=== PATIENT | male | born 1960 | race Caucasian/White ===

== ENCOUNTER 2025-06-04 13:54 | Outpatient (AMB) | payer OTHER, SELFPAY ==
--- OUTSIDE RECORDS SUMMARY | 2025-03-17 04:30 | XMS_ITS ---
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 Medications Medication SIG (Take, Route, Frequency, Duration) Notes Start Date End Date Status Repatha 140 MG/ML Solution Prefilled Syringe 1 mL Subcutaneous Active Cialis 5 MG Tablet 1 tablet as needed O rally Once a day 03/17/2025 Active Omeprazole 20 MG Capsule Delayed Release 1 capsule 1/2 to 1 hour before morning meal Orally Once a day 03/17/2025 Active Problems Problem Type SNOMED Code ICD Code Onset Dates Problem Status W/U Status Risk Notes Problem Pure hypercholesterolemi a (457972445) Pure hypercholesterol emia, unspecified (E78.00) Active confirmed no myalgia on rapatha, Problem Atherosclerotic heart disease of [place] coronary artery without angina pectoris (195199842340910) Atherosclerotic heart disease of [place] coronary artery without angina pectoris (I25.10) Active confirmed asymptomatic after cath Vital Signs Blood pressure systolic 122 mm Hg 03/17/20 25 Blood pressure diastolic 70 mm Hg 025 Heart Rate 56 /min 03/17/2025 Height 71 in 03/17/2025 Weight 180 lbs 03/17/2025 BMI 25.1 kg/m2 03/17/2025 Encounters Encounter Location Date Provider Diagnosis [facility] [address] [place], [place] [id number] 03/17/2025 Wolfgang Hollingsworth Bunionette of left f oot M21.622 ; Pure hypercholesterolemia, unspecified E78.00 and Atherosclerotic heart disease of [place] coronary artery without angina pectoris I25.10 Assessments Encounter Date Diagnosis (ICD Code) Assessment Notes Treatment Notes Treatment Clinical Notes Section Notes 03/17/2025 Bunionette of left foot (ICD-10 - M21.622) painful bunionette 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 Pt is well aware, being an ED physician, signs , symptoms, and treatment options. 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 Pt is well aware, being an ED physician, signs , symptoms, and treatment options. Next Appt Details Follow Up: prn, Reason: History and Physical Notes * HPI (History of Present Illness) Category Sub-Category Detail Notes Category Not es New symptom(s) 1) went on ski trip, avid skier, and injured lateral left foot. has bunion, and growing and worsening. no acute injury and has been painful since september, (6 months). Has been climbing mountains, otherwise feels well, active. 2) ASCVD, s/p acute LAD IN, initially EF 20-30%, and current EKG shows old IN qith Q waves. No chest pain, palp, dizziness currently 3) High choelsterol, had myualgia on statin after trying a few different ones. now on Rapatha, through cardiology. ROS, denies f/c/n/v/c/d/sizziness or syncope Examination Category Sub-Category Detail Notes Category Not es General Examination GENERAL APPEARANCE: in no ac jordan distress, well developed, well nourished EYES: pupils equal, round, reactive to light and accommodation HEART: no murmurs, regular rate and rhythm, S1, S2 normal LUNGS: clear to auscultatio n bilaterally EXTREMITIES: no clubbing, cyanosi s, or edema, bilateral bunions lateral, although left more sympotmatic Progress Notes * Jose Alfredo CORTEZDOB:[birth year] (64 yo M)Acc No.[id number]:03/17/2025 Progress Notes Patient: Jose Alfredo Yoder Provider: Albino Hollingsworth M.D. :1960 A ge:64 Y S ex:Male Date:03/17/2025 Address:[address] [place], [id number] Subjective: * Chief Complaints: * N P, needs a referral * HPI: N ew symptom(s): 1) went on ski trip, avid skier, and injured lateral left foot. has bunion, and growing and worsening. no acute injury and has been painful since september, (6 months). Has been climbing mountains, otherwise feels well, active. 2) ASCVD, s/p acute LAD IN, initially EF 20-30%, and current EKG shows old IN qith Q waves.? No chest pain, palp, dizziness currently 3) High choelsterol, had myualgia on statin after trying a few different ones. now on Rapatha, through cardiology. ROS, denies f/c/n/v/c/d/sizziness or syncope. * Medical History: Ascvd HTN High choelsterol Medical History Verified * Surgical History: cardiac cath Surgical History verified. * Family History: F ather: . M other: . F amily History Verified.. * Social History: Social History Verified. No Social History documented. * Medications: T akingCialis 5 MG Tablet 1 tablet as needed Orally Once a day Omeprazole 20 MG Capsule Delayed Release 1 capsule 1/2 to 1 hour before morning meal Orally Once a day Repatha 140 MG/ML Solution Prefilled Syringe 1 mL Subcutaneous Medication List reviewed and reconciled with the patientTaking Cialis 5 MG Tablet 1 tablet as needed Orally Once a day Taking Omeprazole 20 MG Capsule Delayed Release 1 capsule 1/2 to 1 hour before morning meal Orally Once a day Taking Repatha 140 MG/ML Solution Prefilled Syringe 1 mL Subcutaneous Medication List reviewed and reconciled with the patient * Allergies: N .K.D.A.yesAllergies Verified. Objective: * Vitals: H R:56/min, BP:122/70mm Hg, Ht: 71 in, Wt:180lbs, BMI:25.1Index, Ht-cm: 180.34 cm, Wt-k.65 kg. * Examination: G eneral Examination: GENERAL APPEARANCE: i n no acute distress, well developed, well nourished. EYES: p upils equal, round, reactive to light and accommodation. HEART: n o murmurs, regular rate and rhythm, S1, S2 normal.? LUNGS: c lear to auscultation bilaterally. EXTREMITIES: n o clubbing, cyanosis, or edema, bilateral bunions lateral, although left more sympotmatic. Assessment: * Assessment: 1. B unionette of left foot - M21.622 (Primary) N otes :painful bunionette 2 . P ure hypercholesterolemia, unspecified - E78.00 N otes :no myalgia on rapatha 3 . A therosclerotic heart disease of [place] coronary artery without angina pectoris - I25.10 N otes :asymptomatic after cath Plan: * Treatment: 2. P ure hypercholesterolemia, unspecified Notes: emma continue medication 3. A therosclerotic heart disease of [place] coronary artery without angina pectoris Notes: watch carefully for signs and symptoms of cardiac pathology. Pt is well aware, being an ED physician, signs , symptoms, and treatment options. * Follow Up: p rn * Electronic signature of Ronald Hollingsworth MD on 06/04/2025 at 01:58 PM EST Sign off status: Pending * Provider: Albino Hollingsworth M.D. Date: Generated for Raquel barraza/Faiza/Christopheritting on: 08/05/2024 01:58 PM EST
--- OUTSIDE RECORDS SUMMARY | 2025-05-03 03:45 | XMS_ITS ---
Author Organization [facility] dicine Visit Address [address], [address] [place] [address] Care Team Providers Care Laborer Shellfish Processing Name Role Phone Wolfgang Hollingsworth Unavailable [phone] Allergies No Known Allergies REASON FOR VISIT high cholesterol and review Medications Medication SIG (Take, Route, Frequency, Duration) Notes Start Date End Date Status Repatha 140 MG/ML Solution Prefilled Syringe 1 mL Subcutaneous Active Omeprazole 20 MG Capsule Delayed Release 1 capsule 1/2 to 1 hour before morning meal Orally Once a day 03/17/2025 Active Cialis 5 MG Tablet 1 tablet as needed O rally Once a day 03/17/2025 Active Encounters Encounter Location Date Provider Diagnosis [facility] [address] [place] [id number] 05/03/2025 Wolfgang Hollingsworth Pure hypercholesterolemia, unspecified E78.00 Assessments Encounter Date Diagnosis (ICD Code) Assessment Notes Treatment Notes Treatment Clinical Notes Section Notes 05/03/2025 Pure hypercholesterol emia, unspecified (ICD-10 - E78.00) no myalgia on rapatha, Pt will continue on rapatha, as had myalgia on crestor paperwork completed for [employer] deployment. Plan Of Treatment Treatment Notes Assessment Notes Pure hypercholesterolemia, unspecified Pt will continue on rapatha, as had myalgia on crestor paperwork completed for [place] deployment. Next Appt Details Follow Up: prn, Reason: History and Physical Notes * HPI (History of Present Illness) Category Sub-Category Detail Notes Category Not es New symptom(s) s/p FL and st ent in LAD. no medication management and previously on crestor, myalgia with extremes of physical activity, started on rapatha and myalgias improved. will soom be [place] in [employer], and needs to have no change in medication for 90 days prior. will cotninue on rapatha as this is available. Examination Category Sub-Category Detail Notes Category Not es General Examination GENERAL APPEARANCE: in no ac jordan distress, well developed, well nourished Progress Notes * Jose Alfredo CORTEZDOB:[birth year] (64 yo M)Acc No.[id number]:05/03/2025 Progress Notes Patient: Jose Alfredo Yoder Provider: Albino Hollingsworth M.D. :1960 A ge:64 Y S ex:Male Date:05/03/2025 Address:[address] [place], [place] [address] Subjective: * Chief Complaints: * H igh cholesterol and review * HPI: N ew symptom(s): s/p FL and stent in LAD. no medication management and previously on crestor, myalgia with extremes of physical activity, started on rapatha and myalgias improved. will soom be deployed in [employer] [place], and needs to have no change in medication for 90 days prior. will cotninue on rapatha as this is available. * Medical History: Ascvd HTN High choelsterol Medical History Verified * Surgical History: cardiac cath Surgical History verified. * Medications: T akingCialis 5 MG Tablet [...] * Allergies: N .K.D.A.yesAllergies Verified. Objective: * Examination: G eneral Examination: GENERAL APPEARANCE: i n no acute distress, well developed, well nourished. Assessment: * Assessment: 1. P ure hypercholesterolemia, unspecified - E78.00 (Primary) N otes :no myalgia on rapatha, Plan: * Treatment: * Follow Up: p rn * Electronic signature of Ronald Hollingsworth MD on 06/04/2025 at 01:57 PM EST Sign off status: Pending * Provider: Albino Hollingsworth M.D. Date: 07/03/2024 Generated for Raquel barraza/Faiza/Nila on: 08/05/2024 01:57 PM EST
--- OUTSIDE RECORDS SUMMARY | 2025-06-01 04:30 | XMS_ITS ---
Author Organization [facility] dicine Visit Address [address], [address] [place] [address] Care Team Providers Care Field Sampling Technician Name Role Phone Wolfgang Hollingsworth Unavailable [phone] Allergies No Known Allergies REASON FOR VISIT forms/neck pain with radiation and left hip pain Medications Medication SIG (Take, Route, Frequency, Duration) Notes Start Date End Date Status Omeprazole 20 MG Capsule Delayed Release 1 capsule 1/2 to 1 hour before morning meal Orally Once a day 03/17/2025 Active Repatha 140 MG/ML Solution Prefilled Syringe 1 mL Subcutaneous Active Cialis 5 MG Tablet 1 tablet as needed O rally Once a day 03/17/2025 Active Problems Problem Type SNOMED Code ICD Code Onset Dates Problem Status W/U Status Risk Notes Problem Spinal stenosis in cervical region (01965433) Spinal stenosis, cervical region (M48.02) Active confirmed MRI confirmed nerve impingment Encounters Encounter Location Date Provider Diagnosis [facility] [address] [place], [place] [phone] 06/01/2025 Wolfgang Hollingsworth Spinal stenosis, cervical region M48.02 and Pain in left hip M25.552 Assessments Encounter Date Diagnosis (ICD Code) Assessment Notes Treatment Notes Treatment Clinical Notes Section Notes 06/01/2025 Spinal stenosis, cervical region (ICD-10 - M48.02) MRI confirmed nerve impingment Completed disability form, unable to work until condition improves, either with concervative therapy or surgery. follow up with surgeon planned. 50 min spent discussing condition, option of concervative vs aggressive treatment. 06/01/2025 Pain in left hip (ICD-10 - M25.552) possibly soft tissue injury will get xray of hip and refer pr pt request. Plan Of Treatment Treatment Notes Assessment Notes Spinal stenosis, cervical region Completed disability form, unable to work until condition improves, either with concervative therapy or surgery. follow up with surgeon planned. 50 min spent discussing condition, option of concervative vs aggressive treatment. Pain in left hip will get xray of hip and refer pr pt request. Pending Test Test Name Order Date XR HIP LEFT 06/01/2025 History and Physical Notes * HPI (History of Present Illness) Category Sub-Category Detail Notes Category Not es New symptom(s) 2 weeks ago , noted pain in neck with radiation down left arm to hand. subjective weakness, mild discordination, was given steroids which helped a bit for a short time, but now worsening. now noticing fasciulations in left hand with pain trying to sleep. MRI shows cervical stenosis, contemplating surgery. 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 Also 2 weeks ago, noted pain and clicking with limits of left hip rotation. not improving. Examination Category Sub-Category Detail Notes Category Not es General Examination GENERAL APPEARANCE: in no ac [place] distress, well developed, well nourished NECK/THYROID: pain with radiation down left arm with rotation NEUROLOGIC: subjective weakness, left hand with some fasciculations, dtr equal upper extremities, left hip with tenderness and click with extremes of lateral rotation. Progress Notes * Jose Alfredo CORTEZDOB:[birth year] (64 yo M)Acc No.[id number]:06/01/2025 Progress Notes Patient: Jose Alfredo Yoder Provider: Albino Hollingsworth M.D. :1960 A ge:64 Y S ex:Male Date:06/01/2025 Address:[address] [place], [place] [id number] Subjective: * Chief Complaints: * F orms/neck pain with radiation and left hip pain * HPI: N ew symptom(s): 2 weeks ago , noted pain in neck with radiation down left arm to hand. subjective weakness, mild discordination, was given steroids which helped a bit for a short time, but now worsening. now noticing fasciulations in left hand with pain trying to sleep. MRI shows cervical stenosis, contemplating surgery. 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 Also 2 weeks ago, noted pain and clicking with limits of left hip rotation. not improving. * Medical History: Ascvd HTN High choelsterol [...] no acute distress, well developed, well nourished. NECK/THYROID: p ain with radiation down left arm with rotation. NEUROLOGIC: s ubjective weakness, left hand with some fasciculations, dtr equal upper extremities, left hip with tenderness and click with extremes of lateral rotation. Assessment: * Assessment: 1. S cherise stenosis, cervical region - M48.02 (Primary) N otes :MRI confirmed nerve impingment 2 . P ain in left hip - M25.552 N otes :possibly soft tissue injury Plan: * Treatment: 2. P ain in left hip I maging: XR HIP LEFT Notes: will get xray of hip and refer pr pt request. * Electronic signature of Ronald Hollingsworth MD on 06/04/2025 at 01:57 PM EST Sign off status: Pending * Provider: Albino Hollingsworth M.D. Date: 08/02/2024 Generated for Raquel barraza/Faiza/Christopheritting on: 08/05/2024 01:57 PM EST
--- OUTSIDE RECORDS SUMMARY | 2025-06-04 13:57 | XMS_ITS | Patient Health Record ---
Author Organization [facility] Address [address] [address] Care Team Providers Care Men'S Leather Dress Belt Maker Name Role Phone other, (w) Unavailable Unavailable Reason For Referral No Information Plan Of Treatment No Information Insurance Providers Payer Name Payer Address Payer Phone Subscriber Number Group Number Insured Name Patient Relationship to Insured Coverage Start Date Coverage End Date Self Pay [phone] [place] [address] Jose Alfredo Cortez Self - patient is the insured
--- OUTSIDE RECORDS SUMMARY | 2025-06-04 13:57 | XMS_ITS ---
[place] [address] Care Team Providers Care Developmental Behavioral Physician Name Role Phone Lang Fernandez MD Primary Care Provide r Hyperlipidemia Status:Ineligible (Enrolling) Start date:08/05/2024 Enrollment reason:Ineligible - Insurance Mandate Current support & services provided:Benefits Investigation Linked medications:evolocumab (Active) Linked problems:ASCVD (arteriosclerotic cardiovascular disease) (Active) Continued Care and Services Coordination
--- OUTSIDE RECORDS SUMMARY | 2025-06-04 13:57 | XMS_ITS | Clinical Summary ---
Author Organization [facility] Address [address] [place] [address] Care Team Providers Care Loss Prevention Research Engineer Name Role Phone Fernie Jewell MD Unavailable [phone] Wolfgang Hollingsworth Primary Care Provider [phone] Social History Tobacco Use Types Packs/Day Years Used Date Smoking Tobacco: Never Assessed Sex and Gender Information Value Date Recorded Sex Assigned at Male 05/21/2025 2:02 PM EST Legal Sex Male 2:01 PM EST Gender Identity Male 05/21/2025 2:02 PM EST Sexual Orientation Not on file Plan of Treatment Upcoming Encounters Date Type Department Care Team (Late st Contact Info) Description 06/09/2025 8:40 AM EST Office Visit [facility] [address] [place] [address], [address] [place] [address] Butser Amaya MD [address] [place] [id number] In Person with Physician Health Maintenance Due Date Last Done Comments Blood Pressure 1960 Lipid Panel 1960 PSA 1960 Prostate Cancer Screening 1960 SDM 1960 Depression Screening 1972 Hepatitis C Screening 1978 CT Colonography 2005 Colonoscopy 2005 Colorectal Cancer Screening 2005 FIT 2005 FOBT 2005 Multitarget Stool DNA (Cologuard) 2005 Sigmoidoscopy 2005 Pneumococcal Vaccine: 50+ Years (1 of 1 - PCV) 2010 Zoster Vaccine (1 of 2) 2010 COVID-19 Vaccine ( - 2024-2 6 season) 2025 Influenza Vaccine (#1) 2025 3, 02/24/2020 DTaP,Tdap,and Td Vaccines (2 - Td or Tdap) 10/04/2030 10/04/2020 Meningococcal B Vaccines Aged Out No longer eligible based on patient's age to complete this topic Meningococcal Vaccines Aged Out No lo nger eligible based on patient's age to complete this topic Procedures Procedure Name Priority Date/Time Associated Diagnosis Comments MRI CERVICAL SPINE OUTSIDE STUDY 05/20/2025 4:20 PM EST from Last 3 Months Results * MRI Cervical Spine Outside Study (05/20/2025 4:20 PM EST) Anatomical Region Laterality Modality Magnetic Resonan ce 05/21/2025 5:04 PM EST Narrative 05/21/2025 5:04 PM EST This is a non-reportable study used for image storage. It has been automatically finalized and does not contain a result. Procedure Note System, Provider Not In - 05/21/2025 This is a non-reportable study used for image storage. It has beenautomatically finalized and does not contain a result. us Provider Not In System IMG MRI ORDERABLES Final Result from Last 3 Months Insurance Care Teams Loss Prevention Research Engineer Relationship Specialty Start Date End Date Wolfgang Hollingsworth [address] [place] [id number] PCP - General 05/21/25 Fernie Jewell MD [address] [place] [id number] Consulting Provider Neurology 05/21/25
--- OUTSIDE RECORDS SUMMARY | 2025-06-04 13:58 | XMS_ITS | Patient Health Record ---
Author Organization [facility] Internal Az dicine Visit Address [address], [address] [place] [address] Care Team Providers Care Curing Pickling Packer Name Role Phone Wolfgang Hollingsworth Unavailable [phone] Allergies No Known Allergies Reason For Referral Reason left foot bunionette Diagnosis 1 Bunionette of left f oot (M21.622) Referral Organization [facility] Referring Provider First Name Wolfgang Referring Provider Last Name Edel Referring Provider Speciality Internal M edicine Referred Provider Joao May Referred Provider Specialty Podiatry Referral Priority Routine Medications Medication SIG (Take, Route, Frequency, Duration) [...] Problem Status W/U Status Risk Notes Problem Atherosclerotic heart disease of [place] coronary artery without angina pectoris ([id number]) Atherosclerotic heart disease of [place] coronary artery without angina pectoris (I25.10) Active confirmed asymptomatic after cath Problem Spinal stenosis in cervical region (19214399) Spinal stenosis, cervical region (M48.02) Active confirmed MRI confirmed nerve impingment Problem Cervicalgia (10083060) Cervicalgia (M54.2) Active confirmed Problem Pure hypercholesterolemi a (915467622) Pure hypercholesterol emia, unspecified (E78.00) Active confirmed no myalgia on rapatha, Vital Signs Heart Rate 56 /min 03/17/2025 Blood pressure diastolic 70 mm Hg 03/17/2025 Height 71 in 03/17/2025 Blood pressure systolic 122 mm Hg 03/17/2025 Weight 180 lbs 03/17/2025 BMI 25.1 kg/m2 03/17/2025 Encounters Encounter Location Date Provider Diagnosis [facility] [address] [place] [address] [id number] 03/17/2025 Wolfgang Hollingsworth Bunionette of left f oot M21.622 ; Pure hypercholesterolemia, unspecified E78.00 and Atherosclerotic heart disease of [place] coronary artery without angina pectoris I25.10 [facility] [address] [place] [address] [id number] 05/03/2025 Wolfgang Hollingsworth Pure hypercholesterolemia, unspecified E78.00 [facility] [address] [place] [address] [id number] 06/01/2025 Wolfgang Hollingsworth Spinal stenosis, cervical region M48.02 and Pain in left hip M25.552 [facility] [address] [place] [address] [id number] 04/27/2025 Wolfgang Hollingsworth [facility] [address] [place] [address] [id number] 05/20/2025 Wolfgang Hollingsworth Cervicalgia M54.2 Assessments Encounter Date Diagnosis (ICD Code) Assessment Notes Treatment Notes Treatment Clinical Notes Section Notes 03/17/2025 Pure hypercholesterolemi a, unspecified (ICD-10 - E78.00) no myalgia on rapatha emma continue medication 03/17/2025 Bunionette of left foot (ICD-10 - M21.622) painful bunionette 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 05/20/2025 Cervicalgia (ICD-10 - M54.2) 06/01/2025 Pain in left hip (ICD-10 - M25.552) possibly soft tissue injury will get xray of hip and refer pr pt request. 06/01/2025 Spinal stenosis, cervical region (ICD-10 - M48.02) MRI confirmed nerve impingment Completed disability form, unable to work until condition improves, either with concervative therapy or surgery. follow up with surgeon planned. 50 min spent discussing condition, option of concervative vs aggressive treatment. 03/17/2025 Atherosclerotic heart disease of [place] coronary artery without angina pectoris (ICD-10 - I25.10) asymptomatic after cath watch carefully for signs and symptoms of cardiac pathology. Pt is well aware, being an ED physician, signs , symptoms, and treatment options. Plan Of Treatment Pending Test Test Name Order Date MR SPINE CERVICAL WO CONTRAST 05/20/2025 XR HIP LEFT 06/01/2025 Insurance Providers Payer Name Payer Address Payer Phone Subscriber Number Group Number Insured Name Patient Relationship to Insured Coverage Start Date Coverage End Date Claims Division [address] [place], [place] [id number] Jose Alfredo Cortez Self - patient is the insured 5 Medical (General) History Medical History History ICD Code ascvd HTN high choelsterol Surgical History Surgery Date(Month/Year) cardiac cath
--- OUTSIDE RECORDS SUMMARY | 2025-06-04 13:58 | XMS_ITS | Clinical Summary ---
Author Organization Pending Sale To [facility] Address [facility] [place] [address] Care Team Providers Care Binder Cutter Name Role Phone Lang Fernandez MD Primary Care Provide r Allergies Active Allergy Reactions Criticality Noted Date Comments Venom-Honey Bee High 10/24/2020 Medications nitroGLYcerin (Nitrostat) 0.4 mg Tablet, Sublingual Place 0.4 mg under the tongue every 5 minutes as needed for Chest pain. Active aspirin EC 81 mg Tablet, Delayed Release (E.C.)Indications: ASCVD (arteriosclerotic cardiovascular disease) Take 1 tablet by mouth daily. 90 tablet 3 08/17/19 23 Active evolocumab (Repatha SureClick) 140 mg/mL Pen InjectorIndication s:ASCVD (arteriosclerotic cardiovascular disease),ST elevation myocardial infarction involving left anterior descending (LAD) coronary artery,Coronary artery disease, unspecified vessel or lesion type, unspecified whether angina present, unspecified whether [place] or transplanted heart Inject 1 mL subcutaneously every 14 days. 3 mL 5 09/22/19 25 Active tadalafiL (Cialis) 5 mg tabletIndications: Lower urinary tract symptoms (LUTS) TAKE ONE TABLET BY MOUTH EVERY DAY 90 tablet 05/20/20 25 Active omeprazole (PriLOSEC) [address] capsuleIndications :Gastroesophageal reflux disease, unspecified whether esophagitis present TAKE ONE CAPSULE BY MOUTH EVERY DAY 90 capsule 05/20/20 25 Active Active Problems Problem Noted Date Diagnosed Date Lower urinary tract symptoms (LUTS) 04/03/2023 Cardiomyopathy, ischemic 10/26/2020 Overview (01/25/2021): TTE 10/2020 (in setting of anterior STEMI): EF 35-40%, LAD territory akinesis. No thrombus. No valve dz TTE 01/2021: EF 59%, distal anterior/apical tardykinesis. No valve dz. Regional wall motion abnormalities much improved compared to prior Assessment & Plan (07/30/2024 10:54 AM EST): No failure by history nor exam. - Diuresis: none - Cardioprotection: none (normalization of global LV systolic function) - Devices: none indicated Assessment & Plan (06/25/2023 10:08 AM EST): No failure by history nor exam. - Diuresis: none - Cardioprotection: none (normalization of global LV systolic function) - Devices: none indicated Assessment & Plan (08/02/2022 1:17 PM EST): No failure by history nor exam. - Diuresis: none - Cardioprotection: none (normalization of global LV systolic function) - Devices: none indicated Assessment & Plan (08/07/2021 1:43 PM EST): No failure by history nor exam. We reviewed the utility of valsartan. Patient would greatly like to stop the medication. He had quick normalization of global function, although remains with apical hypokinesis. Reviewed that there is risk of adverse remodeling off of cardioprotection. Thus, I think a good compromise would be to gather an echocardiogram in ~4-6 months; if there is any decrease in EF, this would warrant reapplication of cardioprotection - Diuresis: none - Cardioprotection: none, as discussed - Devices: none indicated Assessment & Plan (01/25/2021 3:27 PM EDT): No failure by history nor exam. - Diuresis: none - Cardioprotection: coreg, valsartan 80 - Devices: none indicated Assessment & Plan (10/26/2020 9:46 AM EDT): No failure by history nor exam. - Diuresis: none - Cardioprotection: coreg 2.125 bid, entresto - Devices: none indicated - Dx: TTE in 01/2021 ASCVD (arteriosclerotic cardiovascular disease) 10/24/2020 Overview (10/26/2020): Index Event: Anterior STEMI 10/10/2020 - pLAD 100% --> 3.0 x 26 Diggs - oLAD 50 - RCA (dominant) and Cx with mild dz Assessment & Plan (07/30/2024 10:56 AM EST): No angina per history at excellent workload. He recently stopped his crestor due to myalgias. Will recheck lipid panel as last LDL on crestor was 51 in 12/2023. Given this, will try repatha for secondary prevention as he has been intolerant of multiple statins. - Anti-Thrombosis: asa 81 - Anti- Lipemic: none (see above) - Anti- Anginals: GTN PRN Assessment & Plan (06/25/2023 10:08 AM EST): No angina per history at excellent workload. - Anti-Thrombosis: asa 81 - Statin: lipitor 80 - Anti-anginals: GTN PRN - LDL, LPa Assessment & Plan (08/02/2022 1:17 PM EST): No angina per history at excellent workload. Myalgias are likely from aerobic activity. If they become independent of such, can either decrease lipitor to 40, or switch to crestor. - Anti-Thrombosis: asa 81 - Statin: lipitor 80 - Anti-anginals: GTN PRN Assessment & Plan (08/07/2021 1:41 PM EST): No angina per history at excellent workload - Anti-Thrombosis: asa 81, prasugrel 10. D/c the latter 10/2021 - Statin: lipitor 80 - Anti-anginals: GTN PRN Assessment & Plan (01/25/2021 3:27 PM EDT): No angina per history at excellent workload - Anti-Thrombosis: asa 81, prasugrel 10 - Statin: lipitor 80 - Anti-anginals: GTN PRN, coreg Assessment & Plan (10/26/2020 9:49 AM EDT): Patient's discharge regimen for s/p PCI is rather atypical. I do not see a role for Eliquis. I think DAPT would confer significantly more protection against in- stent thrombosis than his current regimen. However, we do not want to have only one agent be therapeutic during medication manipulation. He also expressed interest in switching from plavix to either ticagrelor or prasugrel, which is very reasonable, especially in light of recent studies. Its also odd that being so active and healthy he has developed such atherosclerosis. Will evaluate cholesterol axis - Anti-Thrombosis: - Initiate ASA 324 x 1 today, followed by 81 mg QD - Stop Eliquis 11/01 - On 11/08/2020, d/c plavix. initiate prasugrel 60 mg x 1, followed by 10mg QD thereafter. (at that point, he will be on ASA and prasugrel) - Continue prasugrel through at least 10/2021 - Statin: lipitor 80 - Anti-anginals: GTN PRN, coreg - Referral to Cardiac Rehab @ [facility] – [place] - Cholesterol profile, Lpa Resolved Problems Problem Noted Date Diagnosed Date Resolved Date Gross hematuria 10/24/2020 10/24/2020 ST elevation myocardial infa rction involving left anterior descending (LAD) coronary artery 10/10/2020 10/26/2020 Overview (10/26/2020): Encounters Date Type Department Care Team Description 05/16/2025 [place] [address] Lang Fernandez MD Lower urinary tract symptoms (LUTS); Gastroesophageal reflux disease, unspecified whether esophagitis present from Last 3 Months Immunizations Immunization Administration Dates Next Due Covid-19 Monovalent (Pfizer Comirnaty purple cap) 12yrs+ (0207-5883) 06/17/2020,05/28/2020 Hepatitis B Adult (Engerix-B, Recombivax) 2020 Influenza Quadrivalent, Preservative Free 2022,02/24/2020 Polio Inactivated (IPOL) 10/06/2020 Tdap (Adacel, Boostrix) 10/04/2020 Tuberculin Skin Test, PPD 10/04/2020 Family History Medical History Relation Comments Lung Cancer Mother Relation Status Comments Brother 1 Alive Brother 2 Alive Father Mother Social History Tobacco Use Types Packs/Day Years Used Date Smoking Tobacco: Never Smokeless Tobacco: Never Tobacco Cessation:Counseling Given: Not Answered Alcohol Use Standard Drinks/Week Comments Yes 1 (1 standard drink = 0.6 oz pur e alcohol) couple times a month Sex and Gender Information Value Date Recorded Sex Assigned at Not on file Legal Sex Male 5:40 AM EST Gender Identity Not on file Sexual Orientation Not on file 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 file Not on milagros e Not on file physician Not on file Not on file Not on file Last Filed Vital Signs Vital Sign Reading Time Taken Comments Blood Pressure 123/70 09/18/2024 9:00 AM EDT Pulse 57 09/18/2024 9:00 AM EDT Temperature 36.5 C (97.7 F) 09/18/2024 9:00 AM EDT Respiratory Rate 12 07/04/2023 9:55 AM EST Oxygen Saturation 100% 09/18/2024 9:00 AM EDT Inhaled Oxygen Concentration - - Weight 82.1 kg (181 lb) 09/18/2024 9:00 AM EDT Height 180.3 cm (5' 11 ) 09/18/2024 9:00 AM EDT Body Mass Index 25.24 09/18/2024 9:00 AM EDT Plan of Treatment Health Maintenance Due Date Last Done Comments CT Colonography 1960 FIT DNA 1960 FIT 1960 Sigmoidoscopy 1960 Pneumoccocal Vaccine: 50+ (1 of 2 - PCV) 09/30/1979 RSV Vaccine (1 - Risk 50-74 years 1-dose series) 2010 Zoster vaccine (1 of 2) 2010 Advance Directive 09/30/2015 Covid-19 Vaccine (3 - season) 02/08/202501/2021, 05/28/2020 Influenza (Flu) vaccine (1 o f 1 - Influenza standard series) 02/08/2025 04/03/2023, 02/24/2020 Colonoscopy 07/04/2026 07/04/2023, 07/04/2023 Colorectal Cancer Screening 07/04/2026 Diabetes Screening (HgbA1C or Glucose) 09/05/2027 (Report in eDH) Lipid Screening 12/25/2028 12/26/2023 Tetanus/Diphtheria/Pertussis Vaccines (2 - Td or Tdap) 10/04/2030 10/04/2020 Sigmoidoscopy (10 year) with FIT yearly 07/04/2033 07/04/2023, 07/04/2023 HIV screen Completed 09/04/2024 (Report in eDH) Hepatitis C Screening Completed 09/04/2024 (Report in eDH) Procedures Procedure Name Priority Date/Time Associated Diagnosis Comments EXTERNAL LIPID LAB RESULTS PANEL Routine 12/26/2023 COLONOSCOPY Routine 07/04/2023 8:58 AM EST from Last 3 Months or Most Recently Relevant to Health Maintenance Results * Lipid External Results (12/26/2023) Cholesterol, Total 139 HDL Cholesterol 75 LDL Cholesterol 51 Triglyceride 66 us Historical Provider POINT OF CARE TEST ORDERA BLES Final Result * COLONOSCOPY (07/04/2023 8:58 AM EST) COLONOSCOPY [facility] Endoscopy Procedure Date: 07/04/2023 8:58 AM Patient Name: Jose Alfredo Cortez Date of : 1960 Age: 62 Order #: [id number] Instrument Name: [id number] Procedure: Colonoscopy Indications: Screening for colorectal malignant neoplasm Patient Profile: This is a 62 year old male. Refer to note in patient chart for documentation of history and physical. Providers: John Dumont MD, Sukhdeep Borges RN, Mey Chao MD: Caden Senior MD Medicines: Midazolam 6 mg IV, Fentanyl 150 micrograms IV Complications: No immediate complications. Procedure: Pre-Anesthesia Assessment: - Prior to the procedure, a History and Physical was performed, and patient medications and allergies were reviewed. The patient's tolerance of previous anesthesia was also reviewed. The risks and benefits of the procedure and the sedation options and risks were discussed with the patient. All questions were answered, and informed consent was obtained. Prior Anticoagulants: The patient has taken no anticoagulant or antiplatelet agents. ASA Grade Assessment: II - A patient with mild systemic disease. After reviewing the risks and benefits, the patient was deemed in satisfactory condition to undergo the procedure. The procedure, indications, benefits, risks and alternatives were explained to the patient. Specifically discussed were potential complications including, but not limited to, bleeding, perforation, infection, missing a cancer, and adverse medication reactions. The patient was placed in the left lateral decubitus position, and a digital rectal exam was performed. The Colonoscope was inserted in the anus and under direct visualization, advanced to the terminal ileum, with identification of the appendiceal orifice and IC valve. Careful inspection was made as the colonoscope was withdrawn. The colonoscopy was performed without difficulty. The patient tolerated the procedure well. The quality of the bowel preparation was evaluated using the BBPS (Addison Bowel Preparation Scale) with scores of: Right Colon = 3 (entire mucosa seen well with no residual staining, small fragments of stool or opaque liquid), Transverse Colon = 3 (entire mucosa seen well with no residual staining, small fragments of stool or opaque liquid) and Left Colon = 3 (entire mucosa seen well with no residual staining, small fragments of stool or opaque liquid). The total BBPS score equals 9. The quality of the bowel preparation was excellent. The terminal ileum, ileocecal valve, appendiceal orifice, and rectum were photographed. Scope withdrawal time was 14 minutes. Findings: The perianal and digital rectal examinations were normal. Scattered small-mouthed diverticula were found in the sigmoid colon. A 12 mm polyp was found in the distal rectum. The polyp was multi-lobulated and sessile. The polyp was removed with a lift and cut technique using a cold snare. Resection and retrieval were complete. The terminal ileum appeared normal. The exam was otherwise without abnormality on direct and retroflexion views. Moderate Sedation: Moderate (conscious) sedation was administered by the nurse and supervised by the endoscopist. The patient's oxygen saturation, heart rate, blood pressure and response to care were monitored. I was present during the intraservice time as documented by the sedation RN. Impression: - Diverticulosis in the sigmoid colon. - One 12 mm polyp in the distal rectum, removed using lift and cut and a cold snare. Resected and retrieved. - The examined portion of the ileum was normal. - The examination was otherwise normal on direct and retroflexion views. Recommendation: - Await pathology results. - Repeat colonoscopy in 3 years for surveillance. Attending Participation: I personally performed the entire procedure. I was present during the intraservice time as documented by the sedation RN. Dr. Sukhdev Dumont ___ John Dumont MD 07/04/2023 9:58:24 AM Number of Addenda: 0 Note Initiated On: 07/04/2023 8:58 AM PROVATION 07/04/2023 8:58 AM EST us Caden Senior MD GENERAL SURGICAL ORDERABLES Final Result PROVATION from Last 3 Months or Most Recently Relevant to Health Maintenance Insurance [employer] Care Teams Binder Cutter Relationship Specialty Start Date End Date Lang Fernandez MD [facility] GENER[facility] [place] [address] PCP - General General Internal Medicine 02/24/24
[2025-06-04 14:32] VITALS: BMI 25.8
--- NOTE | 2025-06-04 14:32 | A.SPINEOV_ITS ---
Vital Signs 06/04/25 14:32 Height 5 ft 11 in Weight 185 lb BMI 25.8 Intake Visit Reasons: cervical stenosis/weakness Intake Note: Mr. Cortez is here today c/o neck pain and weakness. 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 Initially it felt like a cramping in his hand and fatigue. Ultimately 3 or 4 weeks ago it shifted to feelings of pain in his subscapular region radiating down from his chest into his medial biceps region, going into his medial forearm in his 5th digit. He does not recall any specific inciting event, but he was cutting a lot of firewood prior to all of this. He is also noting fasciculations of his fingers. Reports he also might have had some fasciculations in his left triceps as well. He has noticed loss of dexterity of his left hand. Some loss of sensation as well, not as well localized. 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 He had to step away from work because he was unable to safely continue given the responsibilities that he had it work. He sought two spine opinions from surgeons in [facility], both orthopedic surgeons, 1 recommended urgent 3 level anterior cervical fusion C5-T1, a 2nd surgeon told him to give it more time and if it was not better in 6 weeks he could move ahead with 3 level fusion C5-T1. He came in today for a 3rd opinion, he found Dr. Lutz online. PMH: He has a history of a coronary blockage had a ST-elevation [place] with reduction in EF, underwent stenting and since that time has recovered to full function, and has been very active. History of hernia surgery at age 6. He had a bunion surgery as well. History of high cholesterol and GERD. Social hx: He does not smoke, drink use any recreational drugs Medications: Aspirin, Repatha for cholesterol, tadalafil and Prilosec Allergies: None Physical exam: Awake alert oriented no acute distress, he has excellent proximal motor strength bilaterally in the deltoids biceps triceps. He does have weakness of his palmar grasp and his finger intrinsics, specifically abduction and extension. There appears to also be some muscle atrophy on the dorsum of his hand as well. His muscular bulk on his thumb on the left hand also looks somewhat atrophied as well. Reflex testing reveals intact biceps, brachioradialis, possibly slightly reduced left triceps reflex compared to the right. Imaging review: Cervical MRI done at outside facility, shows that he has degenerative disc disease at C5-6 and C6-7 with bilateral neuroforaminal stenosis that would rate as moderate to severe. The C6-7 stenosis in the central canal is moderate. There is no cord signal change seen. At C7-T1 there is moderate to severe left foraminal stenosis. I can not tell from the images if there is an acute disc herniation versus just degenerative changes narrowing the foramen around the C8 nerve. 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 In terms of the intensity of the pain it is bothersome and very uncomfortable, but the development of the hand weakness as forced him to stop working in the short term. He has been offered a 3 level fusion at 2 different institutions. Given the distribution of the pain going down into his medial forearm into his pinky finger, sounds to me like we have a clear case for C8 radiculopathy, especially with the weakness of the finger intrinsics and development of some atrophy, however because of some of the overlap of C7 and the foraminal stenosis at that level, that may need to be addressed as well. The patient is concerned about moving ahead with a 3 level fusion as he has researched it and found that the risk of adjacent segment disease and that is situation is fairly high, and he is correct on that point. He is looking for something less invasive, and that maybe a little more focused on the cause of his symptoms instead of just treating all the degenerative discs in his neck. We had a lengthy conversation and reviewed his imaging together. I am going to send him for an EMG of the left upper extremity. Because of the weakness and some of the atrophy is developing in his hand I suspect this will help guide us. In the interim I will show his imaging to Dr. Lutz and get back to him with a tentative plan. I did order the EMG as urgent given the hand weakness. Thank you for allowing us to care for your patient. The total time spent with this visit with this patient was 45 minutes reviewing history, physical exam, cervical MRI imaging review, and implementation of treatment plan or further diagnostic testing Jt Lutz MD,PhD [facility] Orders: Orders NE electromyogram (EMG) Today M54.12 - Radiculopathy, cervical region Coding Level of Care Code New Pt Level 4 (97778) Diagnoses Cervical radiculopathy M54.12
== END 2025-06-04 16:58 | disposition home or self-care (01) ==
LOC: HO.HNS 13:54
PROVIDERS: Visit Provider Physician Assistant
DX: M54.12 Radiculopathy, cervical region (principal)
CPT/HCPCS: 99204

== ENCOUNTER → 2025-06-04 13:54 | Outpatient (BNVA) | payer OTHER, SELFPAY | PROVIDERS: Visit Provider Physician Assistant | DX: M54.12 Radiculopathy, cervical region (principal) | CPT/HCPCS: 99202 ==